=== PATIENT | male | born 1955 | race Two or more races ===

== ENCOUNTER 2022-02-17 06:16 | Day surgery (SDC) | payer OTHER ==
[2022-02-17] MEDS ORDERED: PERCOCET 5-3251 EACH PO (13:05)
== END 2022-02-17 18:40 | disposition home or self-care (01) ==
LOC: CIR.AMB 06:16
PROVIDERS: ATTEND Surgery
DX: K64.8 Other hemorrhoids (principal); I10 Essential (primary) hypertension; N40.0 Benign prostatic hyperplasia without lower urinary tract symptoms